=== PATIENT | male | born 1960 | race Caucasian/White ===

== ENCOUNTER → 2020-07-20 10:51 | Outpatient (CLI) | payer OTHER, SELFPAY ==
[2020-07-20 12:45] LABS: COVID19 -Nasal RAPID Negative (Negative)
== END ==
PROVIDERS: Visit Provider Physician Assistant
DX: Z11.59 Encounter for screening for other viral diseases (principal)
CPT/HCPCS: 87635

== ENCOUNTER → 2020-07-22 10:23 | Outpatient (CLI) | payer OTHER, SELFPAY ==
--- NOTE | 2020-07-25 13:59 | DI.NM.S_ITS ---
DATE OF SERVICE: PROCEDURE PERFORMED: Exercise treadmill stress and rest myocardial perfusion imaging study with gating to assess ejection fraction and regional wall motion. DATE OF STUDY: 07/22/2020. ORDERING PROVIDER: ANGELITA Odonnell INDICATIONS: The patient is a 60-year-old male with a previous NSTEMI and CABG, who now presents with atypical chest discomfort. EXERCISE TREADMILL TESTING: The patient was able to exercise for 6 minutes 11 seconds on a standard Vipin protocol suggesting moderately reduced exercise capacity with an JOSEFA of +24%. He had a normal heart rate response to exercise achieving a maximum heart rate of 143 BPM (90% of his predicted maximum). He had a mild hypertensive blood pressure response with a resting blood pressure of 150/86, increasing to a maximum of 204/100. He had no chest discomfort. His resting ECG shows sinus rhythm with fairly normal ST segments. With exercise, there is considerable motion artifact, although there appears to be some mild, nonspecific ST depression that appears to be predominantly upsloping. He had occasional PVCs, but no complex arrhythmia. At 5 minutes, 15 seconds of exercise, at a heart rate of 138 BPM, 25.7 millicuries of technetium-99m Myoview was injected. The patient was imaged 20 minutes later using a gated SPECT acquisition protocol. He returned three days later and was reinjected with an additional 25.9 millicuries of technetium-99m Myoview and was again scanned using a SPECT protocol 30 minutes after injection. RAW DATA: There is fair myocardial tracer uptake. The lung/heart ratio is at the upper limits of normal at 0.41. TID ratio is borderline increased at 1.21 although post stress dilation is not clearly evident visually. GATED STUDY: Post-stress ejection fraction is estimated at 65% without any focal wall motion abnormalities. Resting ejection fraction is estimated at 69% and appears unchanged from the post-stress images. Resting end-diastolic volume is 100 mL. MYOCARDIAL PERFUSION SCAN: Post-stress supine images shows a fairly normal myocardial perfusion pattern with a very subtle defect in the proximal to mid inferior wall in a pattern that would be consistent with diaphragmatic attenuation, although a very slight defect persists on the prone images. There are no other concerning perfusion defects. The resting images show a similar perfusion pattern but with very subtle improvement in the proximal inferior wall. IMPRESSION: 1. Probable normal myocardial perfusion study. 2. Subtle, predominantly fixed proximal inferior defect with minimal reversibility. This likely reflects diaphragmatic attenuation given its significant improvement on the prone images, although it does persist to a slight degree on the prone images, raising the question of possible previous nontransmural infarction with mild infarct ischemia. Yet, if present, the amount of ischemic myocardium is small and thus this is a low risk study. 3. Normal left ventricular systolic function without focal wall motion abnormality. The lung/heart ratio was borderline elevated, which can be a sign of possible pulmonary congestion, and the TID ratio is borderline elevated at 1.21, although it is not clearly evident visually. 4. Moderately reduced exercise capacity with significant exertional dyspnea but no chest discomfort. There is minor, nonspecific EKG changes with stress. Petey Hairston - RS/annie/cs doc#: [id number]/job#: [id number] dd: 07/25/2020 12:31:00 dt: 07/25/2020 13:23:00 DICTATING MD/COPIES TO: Jethro Avila MD; ANGELITA Odonnell; Aranza Romero MD COPIES MNE: [id number]; ;
== END ==
PROVIDERS: PCP Physician Assistant Medical; Referring Provider Nurse Practitioner; Visit Provider Nurse Practitioner
DX: I25.810 Atherosclerosis of coronary artery bypass graft(s) without angina pectoris (principal); R07.89 Other chest pain; I25.2 Old myocardial infarction; Z95.1 Presence of aortocoronary bypass graft
CPT/HCPCS: 78452; 93017; A9502

== ENCOUNTER 2022-01-30 10:28 | Inpatient (IN) | payer OTHER, SELFPAY ==
[2022-01-30] VITALS (21 sets, daily range): BP systolic 123–192; BP diastolic 71–95; PULSE 77–102; RESP 9–26; TEMP 36.9; O2SAT 94–98; BMI 33.6
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
--- NOTE | 2022-01-30 13:08 | DI.RAD.S_ITS ---
PROCEDURE: XR CHEST 1V INDICATIONS: Chest pain TECHNIQUE: One view of the chest was acquired. COMPARISON: None. FINDINGS: Surgical changes and devices: Median sternotomy changes. Lungs and pleura: Lungs are clear. No pleural effusions or pneumothorax. Mediastinum: Mediastinal contours appear normal. Heart size is normal. Bones and chest wall: No suspicious bony lesions. Overlying soft tissues appear unremarkable. Partially visualized dilated loops of bowel with possible fluid levels in the abdomen. IMPRESSION: No acute cardiopulmonary process demonstrated radiographically. Partially dilated loops of bowel with at least 1 fluid level seen in the upper abdomen. Consider CT of the abdomen and pelvis. Dictated by: Nj Jarrell M.D. on 01/30/2022 at 14:01 Approved by: Nj Jarrell M.D. on 01/30/2022 at 14:02
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
--- NOTE | 2022-01-30 13:33 | PC.NURSE ---
Has had improvment of dizziness at home with meclizine and reports improvement of headache with excederine.
[2022-01-30 13:35] LABS: COVID19 -Nasal RAPID POSITIVE (Negative)
[2022-01-30 13:50] LABS: Add Manual Diff / Slide Review NO; Basophils Absolute Auto 0 /uL (0-100); Basophils Percent Auto 0.7 % (0-2); Eosinophils Absolute Auto 100 /uL (0-450); Eosinophils Percent Auto 1.3 % (2-4); Hemoglobin 15.2 g/dL (13.5-17.5); Lymphocytes Absolute Auto 1200 /uL (1100-4500); Lymphocytes Percent Auto 19.7 % (25-40); Mean Corpuscular HGB Conc 34.4 % (30-36); Mean Corpuscular Hemoglobin 28.3 PG (26-34); Mean Corpuscular Volume 82.1 fL (80-100); Monocytes Absolute Auto 700 /uL (0-900); Monocytes Percent Auto 11.6 % (3-14); Neutrophils Absolute Auto 3900 /uL (1500-7000); Neutrophils Percent Auto 66.7 % (50-75); Platelet Count 237 X10^3/uL (150-400); Red Blood Cell Count 5.36 X10^6/uL (4.5-5.9); Red Cell Distribution Width 13.9 % (11.6-14.8); White Blood Cell Count 5.9 X10^3/uL (4.5-11.0)
[2022-01-30 15:02] LABS: INR 1.2 (0.9-1.3)
[2022-01-30 15:05] LABS: PTT Partial Thromboplastin Tim 32 SECONDS (26.4-36.2)
[2022-01-30 15:06] LABS: Alanine Aminotransferase 15 IU/L (<50); Albumin 4.3 g/dL (3.5-5.0); Albumin Globulin Ratio 1.4 (1.0-2.8); Alkaline Phosphatase 78 U/L (38-126); Aspartate Aminotransferase 25 IU/L (17-59); BUN Creatinine Ratio 24.7 (6-22); Bilirubin Total 0.7 mg/dL (0.2-1.3); Blood Urea Nitrogen 18 mg/dL (9-20); Calcium 8.5 mg/dL (8.4-10.2); Carbon Dioxide 29 mmol/L (22-32); Chloride 99 mmol/L (98-107); Creatine Kinase 64 U/L (55-170); Estimated Glomerular Filt Rate > 60 mL/min (>60); Glucose 195 mg/dL (80-110); HEMOLYSIS 17 (0-50); Lipase 45 U/L (23-300); Magnesium 1.9 mg/dL (1.6-2.3); Potassium 4.5 mmol/L (3.4-5.1); Sodium 137 mmol/L (137-145); Total Protein 7.3 g/dL (6.3-8.2)
[2022-01-30 15:47] LABS: Troponin I 0.179 ng/mL (0.01-0.034)
[2022-01-30 17:03] LABS: Troponin I 0.195 ng/mL (0.01-0.034)
--- NOTE | 2022-01-30 17:07 | DI.CT.S_ITS ---
PROCEDURE: CT ANGIO CHEST PE PROTOCOL INDICATIONS: elevated trop, positive COVID TECHNIQUE: After the administration of intravenous contrast, 2 mm thick sections acquired from the pulmonary apices to the posterior costophrenic angles. 3-dimensional maximum intensity projection (MIP) coronal and sagittal reformats were then acquired through the thorax. For radiation dose reduction, the following was used: automated exposure control, adjustment of mA and/or kV according to patient size. COMPARISON: None. FINDINGS: Image quality: Good. Pulmonary arteries: Pulmonary arteries are normal in size, and demonstrate no intraluminal filling defects to suggest central pulmonary embolism. Lungs and pleura: Right lower lobe pulmonary nodule measuring 0.4 cm, (5/145). No pleural effusions or pneumothorax. Central and peripheral airways are patent. Mediastinum: Post median sternotomy. Heart size is normal, without pericardial effusion. No mediastinal or hilar adenopathy. Thoracic aorta is normal in caliber and enhancement. Esophagus is normal in caliber, without hiatal hernia. Bones and chest wall: No suspicious bony lesions. Small bone cyst in the proximal left humerus. Ribs and thoracic spine appear intact throughout. Thyroid gland is unremarkable. No axillary or supraclavicular adenopathy. Abdomen: Visualized upper abdominal solid organs appear normal in the early arterial phase of enhancement. Multiple prominent gallstones. IMPRESSION: 1. No pulmonary embolism. 2. No acute airspace opacity demonstrated. 3. Multiple gallstones. Dictated by: Ramírez Kovacs M.D. on 01/30/2022 at 18:45 Approved by: Ramírez Kovacs M.D. on 01/30/2022 at 18:51
[2022-01-30] MEDS: ASPIRIN 81 MG CHEW TAB 324 MG PO (17:29)
[2022-01-30] MEDS: HEPARIN DRIP 25,000 UNIT/500 ML IV.SOLN 20 UNIT IV (19:40)
[2022-01-30] MEDS: HEPARIN 5,000 UNIT/ML VIAL 5000 UNIT IV (19:40)
--- NOTE | 2022-01-30 20:09 | PC.NURSE ---
Pt placed on heparin drip per MAR. Pt denies chest pain at this time, reports mild shortness of breath and a headache. Pt is AxOX4, GCS 15. Pt provided with sandwich and milk per request. Pt informed he will be admitted, but it is unclear when/where.
--- NOTE | 2022-01-30 20:56 | DI.ECHO.S_ITS ---
[place] +---------+ [facility] +---------+ : : [address] [place] [address] : : : : [id number] : : : : Phone: [phone]+ Echocardiogram Report + + :Name: BERTA MORROW Study Date: 01/31/2022 Height: 73 in : :[facility] ReadingLocation: Weight: 255 lb : : Gender: Male BSA: 2.4 m2 : :: 1960 Age: 61 yrs BP: 143/84 mmHg: :Reason For Study: NSTEMI : :Ordering Physician: Amarilis ANGELOformed By: Claudette Ocampo : :Referring: WESTLEY ANGELO : + + Interpretation Summary There is mild concentric left ventricular hypertrophy. The ejection fraction is estimated to be 60-65%. Diastolic parameters suggest probable normal left ventricular diastolic function and normal filling pressures. The right ventricle is normal in size and function. No significant valvular abnormalities. Unable to estimate PASP. Procedure: A two-dimensional transthoracic echocardiogram with color flow and Doppler was performed. The study quality was technically adequate. There is no prior echocardiogram noted for this patient. The patient was in sinus rhythm with heart rates between 70-85 bpm during the exam. Left Ventricle: The left ventricle is normal in size. There is mild concentric left ventricular hypertrophy. The ejection fraction is estimated to be 60-65%. Left ventricular wall motion is normal. Diastolic parameters suggest probable normal left ventricular diastolic function and normal filling pressures. Right Ventricle: The right ventricle is normal in size and function. Atria: The left atrial size is normal. Right atrial size is normal. There is no Doppler evidence for an interatrial shunt. Mitral Valve: The mitral valve is normal in structure and function. There is trace mitral regurgitation. Aortic Valve: The aortic valve is trileaflet. The aortic valve opens well. There is no aortic valve stenosis. No aortic regurgitation is present. Tricuspid Valve: The tricuspid valve is normal in structure and function. No tricuspid regurgitation. Pulmonic Valve: The pulmonic valve leaflets are thin and pliable; valve motion is normal. There is trace pulmonic regurgitation. Great Vessels: The aortic root is normal size. The dimensions of the ascending aorta are normal. The inferior vena cava was not well visualized. Pericardium/ Pleura There is no pericardial effusion. There is no pleural effusion. MMode/2D Measurements & Calculations LVIDd: 4.2 cm LVOT diam: 2.2 cm LVIDs: 3.1 cm Ao root diam: 3.8 cm FS: 26.3 % asc Aorta Diam: 3.5 cm IVSd: 1.2 cm Ao Arch Diam (Prox Trans): 3.2 cm LVPWd: 1.3 cm LV ch. diameter/BSA (cm/m^2): 1.7 LV sys. diameter/BSA (cm/m^2): 1.3 LA A2 area: 20.3 cm2 RA long axis: 5.2 cm LA A4 area: 20.6 cm2 RA area: 16.0 cm2 LA length (vol): 5.6 cm RA vol: 41.8 ml LA vol: 63.2 ml RA : 17.5 ml/m2 LA vol index: 26.5 ml/m2 RVD1 (basal): 4.2 cm TAPSE: 1.4 cm Doppler Measurements & Calculations Ao V2 max: 138.5 cm/sec LVOT Max Amandeep: 87.1 cm/sec Ao V2 mean: 101.4 cm/sec LV V1 max P.0 mmHg Ao max P.7 mmHg LV V1 VTI: 17.0 cm Ao mean P.6 mmHg CB(I,D): 2.4 cm2 Ao V2 VTI: 27.4 cm CB(V,D): 2.4 cm2 sev ratio: 0.62 CB indexed to BSA (cm^2/m^2): 1.0 MV E max amandeep: 54.1 cm/sec PA V2 max: 106.2 cm/sec MV A max amandeep: 63.5 cm/sec PA V2 mean: 66.7 cm/sec MV E/A: 0.85 PA mean P.1 mmHg Med Peak E' Amandeep: 6.2 cm/sec PA pr(Accel): 37.9 mmHg E/E' med: 8.7 Lat Peak E' Amandeep: 9.0 cm/sec E/E' lat: 6.0 E/e' average: 7.4 MV dec time: 0.28 sec SV(LVOT): 65.4 ml Reading Physician:01:45 PM
[2022-01-30 21:28] LABS: Hemoglobin A1C% w Est Avg Glu 9.7 % (4.0-6.0)
[2022-01-30 21:32] LABS: Magnesium 1.7 mg/dL (1.6-2.3)
[2022-01-30 21:49] LABS: Thyroid Stimulating Hormone 2.35 uIU/mL (0.47-4.68)
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
--- NOTE | 2022-01-30 23:08 | PC.NURSE ---
Pt BG 182 at this time.
--- NOTE | 2022-01-30 23:22 | PC.NURSE ---
coordinator attempting to transfer pt to another hospital/skilled laborer. Pt to remain NPO including PO meds until it is known if pt will be transferred to a skilled laborer or not.
[2022-01-31] VITALS (30 sets, daily range): BP systolic 111–170; BP diastolic 60–98; PULSE 69–86; RESP 13–21; TEMP 36.1–37; O2SAT 93–97; BMI 33.6
[2022-01-31] MEDS: LOSARTAN 50 MG TABLET PO ×3 (00:31→20:23)
[2022-01-31] MEDS: METOPROLOL ER 25 MG TABLET PO ×2 (00:31→09:38)
[2022-01-31] MEDS: INSULIN GLARGINE 100 UNIT/ML 3ML PEN 10 UNIT SUBCUT ×2 (00:32→20:27)
[2022-01-31] MEDS: ACETAMINOPHEN 325 MG TABLET 650 MG PO ×2 (00:32→17:35)
[2022-01-31] MEDS: ATORVASTATIN 20 MG TABLET 40 MG PO ×2 (00:32→20:22)
[2022-01-31] MEDS: REMDESIVIR 200 MG in SODIUM CHLORIDE 0.9% 210 ML 250 MG IV (01:44)
[2022-01-31 02:22] LABS: Troponin I 0.183 ng/mL (0.01-0.034)
--- NOTE | 2022-01-31 02:56 | PC.NURSE ---
Lab contacted. PTT still in process.
--- NOTE | 2022-01-31 03:17 | PC.NURSE ---
Lab states PTT is indeed processing.
[2022-01-31 03:39] LABS: PTT Partial Thromboplastin Tim 201 SECONDS (26.4-36.2)
--- NOTE | 2022-01-31 03:42 | PC.NURSE ---
PTT 201. Per Heparin infusion protocol, heparin to be paused for 60 minutes, then infusion resumed at 700u/hr (300u/hr less than previous dose).
[2022-01-31 05:22] LABS: BUN Creatinine Ratio 22.2 (6-22); Blood Urea Nitrogen 14 mg/dL (9-20); Calcium 8.3 mg/dL (8.4-10.2); Carbon Dioxide 25 mmol/L (22-32); Chloride 100 mmol/L (98-107); Cholesterol 101 mg/dL (140-199); Estimated Glomerular Filt Rate > 60 mL/min (>60); Glucose 218 mg/dL (80-110); HDL Cholesterol 25 mg/dL (40-60); HEMOLYSIS 16 (0-50); LDL Cholesterol Calculated 52 mg/dL (<100); Magnesium 1.8 mg/dL (1.6-2.3); Potassium 3.6 mmol/L (3.4-5.1); Sodium 136 mmol/L (137-145); Triglycerides 118 mg/dL (35-150)
[2022-01-31 05:24] LABS: Creatine Kinase 82 U/L (55-170)
--- NOTE | 2022-01-31 05:26 | PC.NURSE ---
Pt continues to deny chest pain/SOB/N/V/D. Pt reports his mild headache from last night is now resolved. Pt in good spirits and is involved in his care, asking questions about his labs and so forth.
[2022-01-31 05:28] LABS: Add Manual Diff / Slide Review NO; Basophils Absolute Auto 100 /uL (0-100); Basophils Percent Auto 1.1 % (0-2); Eosinophils Absolute Auto 300 /uL (0-450); Eosinophils Percent Auto 6.9 % (2-4); Hematocrit 42.1 % (41-53); Hemoglobin 14.3 g/dL (13.5-17.5); Lymphocytes Absolute Auto 1200 /uL (1100-4500); Lymphocytes Percent Auto 25.5 % (25-40); Mean Corpuscular Hemoglobin 27.8 PG (26-34); Mean Corpuscular Volume 81.6 fL (80-100); Monocytes Absolute Auto 400 /uL (0-900); Monocytes Percent Auto 9.3 % (3-14); Neutrophils Absolute Auto 2700 /uL (1500-7000); Neutrophils Percent Auto 57.2 % (50-75); Platelet Count 230 X10^3/uL (150-400); Red Blood Cell Count 5.15 X10^6/uL (4.5-5.9); Red Cell Distribution Width 13.7 % (11.6-14.8); White Blood Cell Count 4.7 X10^3/uL (4.5-11.0)
[2022-01-31 05:38] LABS: Troponin I 0.175 ng/mL (0.01-0.034)
[2022-01-31] MEDS: INSULIN LISPRO 100 UNIT/ML 3ML VIAL SUBCUT ×2 (08:13→20:28)
[2022-01-31] MEDS: ASPIRIN EC 81 MG TABLET PO (09:37)
[2022-01-31 11:08] LABS: Creatine Kinase 72 U/L (55-170)
[2022-01-31 11:12] LABS: PTT Partial Thromboplastin Tim > 400 SECONDS (26.4-36.2)
[2022-01-31 11:22] LABS: Troponin I 0.141 ng/mL (0.01-0.034)
[2022-01-31 15:27] LABS: PTT Partial Thromboplastin Tim 32 SECONDS (26.4-36.2)
[2022-01-31 15:45] LABS: Creatine Kinase 66 U/L (55-170)
--- NOTE | 2022-01-31 17:42 | PC.NURSE ---
Pt arrived from ED A/O Denies any discomfort. Lungs clear, SpO2 987% RA IV heparin infusing as per protocal as per orders. Troponions trending down Call light w/in reach, pt calls appropriately for needs. Continue w/plan of care.
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
[2022-01-31 19:54] LABS: PTT Partial Thromboplastin Tim 34 SECONDS (26.4-36.2)
[2022-01-31] MEDS: HEPARIN 5,000 UNIT/ML VIAL 3000 UNIT IV (20:22)
[2022-02-01] VITALS (8 sets, daily range): BP systolic 116–119; BP diastolic 65–73; PULSE 68–73; RESP 16–19; TEMP 36.3–36.4; O2SAT 95–97
[2022-02-01] MEDS: ACETAMINOPHEN 325 MG TABLET 650 MG PO ×2 (00:04→12:36)
[2022-02-01] MEDS: SODIUM CHLORIDE 0.9% FLUSH 10 ML IV (00:05)
[2022-02-01 02:58] LABS: BUN Creatinine Ratio 22.2 (6-22); Blood Urea Nitrogen 14 mg/dL (9-20); Calcium 8.5 mg/dL (8.4-10.2); Carbon Dioxide 27 mmol/L (22-32); Chloride 101 mmol/L (98-107); Estimated Glomerular Filt Rate > 60 mL/min (>60); Glucose 153 mg/dL (80-110); HEMOLYSIS < 15 (0-50); Potassium 4.1 mmol/L (3.4-5.1); Sodium 138 mmol/L (137-145)
[2022-02-01 03:10] LABS: PTT Partial Thromboplastin Tim 51 SECONDS (26.4-36.2)
--- NOTE | 2022-02-01 03:15 | PC.NURSE ---
0312 Noted APTT results was 51, no changed needed with heparin infusion rate. Currently infusing @ 800 units per hour with the rate of 16 ml./hour. No C/O chest pain, headache, dyspnea & nausea. Will continue plan of care & monitor.
[2022-02-01 03:33] LABS: Hematocrit 44.1 % (41-53); Hemoglobin 15.2 g/dL (13.5-17.5); Mean Corpuscular HGB Conc 34.4 % (30-36); Mean Corpuscular Hemoglobin 28.1 PG (26-34); Mean Corpuscular Volume 81.7 fL (80-100); Platelet Count 237 X10^3/uL (150-400); Red Cell Distribution Width 13.7 % (11.6-14.8); White Blood Cell Count 5.1 X10^3/uL (4.5-11.0)
[2022-02-01] MEDS: INSULIN LISPRO 100 UNIT/ML 3ML VIAL SUBCUT (08:36)
[2022-02-01] MEDS: METOPROLOL ER 25 MG TABLET PO (08:39)
[2022-02-01 08:40] LABS: PTT Partial Thromboplastin Tim 35 SECONDS (26.4-36.2)
[2022-02-01] MEDS: ASPIRIN EC 81 MG TABLET PO (08:40)
[2022-02-01] MEDS: LOSARTAN 50 MG TABLET PO (08:40)
[2022-02-01] MEDS: HEPARIN DRIP 25,000 UNIT/500 ML IV.SOLN 16 UNIT IV (09:32)
[2022-02-01] MEDS: CITALOPRAM 10 MG TABLET 40 MG PO (10:04)
--- NOTE | 2022-02-01 12:00 | PC.NURSE ---
Addendum entered by Suzanne Vera R.N. 02/01/22 14:26: in to see, orders fopr D/C received IV heparin D/C'd One time order of plavix given prior to D/C Home instructions given w/understanding. Pt escorted ambulatory by staff to waiting vehicle D/C in stable condition. Original Note: Pt awake, watching TV Denies any discomfort Tele shows NSR per ICU staff. Heparin gtt. continues at 16cc/hr (800u)as per protocol Independent to BR Continues in isolation Call light w/in reach, pt calls appropriately for needs. Continue w/plan of care.
[2022-02-01] MEDS: CLOPIDOGREL 75 MG TABLET 300 MG PO (14:06)
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
== END 2022-02-01 14:15 | disposition home or self-care (01) | DRG 177 ==
LOC: ED 13:15 → AC 20:39
PROVIDERS: Emergency Medicine; Internal Medicine; Admitting Provider Nurse Practitioner Family; Emergency Provider Physician Assistant; PCP Physician Assistant Medical; Referring Provider Emergency Medicine; Visit Provider Nurse Practitioner Family
DX: U07.1 COVID-19 (principal); I21.4 Non-ST elevation (NSTEMI) myocardial infarction; I10 Essential (primary) hypertension; E11.65 Type 2 diabetes mellitus with hyperglycemia; E78.5 Hyperlipidemia, unspecified; I25.10 Atherosclerotic heart disease of native coronary artery without angina pectoris; Z95.1 Presence of aortocoronary bypass graft; Z79.84 Long term (current) use of oral hypoglycemic drugs; Z79.899 Other long term (current) drug therapy; Z87.891 Personal history of nicotine dependence
CPT/HCPCS: 36415; 70450; 71045; 71275; 72040; 80048; 80053; 80061; 82550; 82962; 83036; 83690; 83735; 84443; 84484; 85025; 85027; 85610; 85730; 87635; 93005; 93306; 94762; 96365; 96366; 96368; 96376; 99285; C9803; J1644; J1815